=== PATIENT | female | born 1975 | race Two or more races ===

== ENCOUNTER → 2021-02-21 | Outpatient (CLI) | payer BC ==
[2021-02-21 13:38] LABS: Basophils # (A) 0.05 X 10*3/uL (0.00-0.10); Basophils % (A) 0.5 %; Eosinophils # (A) 0.09 X 10*3/uL (0.04-0.35); HCT 43.2 % (37.2-46.3); Lymphocytes # (A) 3.25 X 10*3/uL (0.90-5.00); MCH 31.8 pg (27.0-32.0); MCHC 32.4 g/dL (32.0-37.0); MCV 98.2 fL (80.0-97.0); Mean Platelet Volume 9.3 fL (9.5-12.2); Monocytes # (A) 0.56 X 10*3/uL (0.20-1.00); Neutrophils % (A) 57.1 %; Platelet Count 286 X 10*3/uL (140-440); RDW 15.3 % (11.5-14.5); WBC 9.29 X 10*3/uL (4.50-10.00)
[2021-02-21 13:39] LABS: C Reactive Protein <0.30 mg/dL (0.00-0.80)
[2021-02-21 15:06] LABS: Erythrocyte Sedimentation Rate 8 mm/Hr (0-20)
== END | disposition home or self-care (01) ==
LOC: LABWHC1 08:03
PROVIDERS: ATTEND Orthopaedic Surgery
DX: M25.461 Effusion, right knee (principal)
CPT/HCPCS: 36415; 82306; 85025; 85652; 86140